=== PATIENT | male | born 1950 | race Caucasian/White ===

== ENCOUNTER 2025-03-09 06:58 | Inpatient (IN) | payer OTHER ==
[2025-03-01 15:04] LABS: BILIRUBIN,URINE NEGATIVE (Neg); CLARITY,URINE CLEAR (Clear); COLOR,URINE YELLOW (Yellow); GLUCOSE, URINE 500 mg/dl (Neg); KETONES,URINE NEGATIVE (Neg); LEUKOCYTE ESTERASE ,URINE NEGATIVE (Neg); NITRITES, URINE NEGATIVE (Neg); OCCULT BLOOD,URINE NEGATIVE (Neg); PH,URINE 5.5 (4.8-8.0); PROTEIN,URINE NEGATIVE (Neg); UROBILINOGEN,URINE 0.2 E.U/dL (0.2-1.0)
[2025-03-01 15:05] LABS: UA COLLECTION TYPE CLN CATCH MIDSTREAM
[2025-03-01 15:06] LABS: BASOPHILS % (AUTO) 0.3 % (0-1); EOSINOPHILS # (AUTO) 0.3 X10'3 (0-0.9); EOSINOPHILS % (AUTO) 3.7 % (0-6); LYMPHOCYTES # (AUTO) 2.7 X10'3 (1.1-4.8); LYMPHOCYTES % (AUTO) 30.7 % (21-51); MEAN CORPUSCULAR HEMOGLOBIN 29.8 PG (27.0-31.0); MEAN CORPUSCULAR HGB CONC 32.3 g/dL (33.0-36.5); MEAN CORPUSCULAR VOLUME 92.4 FL (78-98); MEAN PLATELET VOLUME 9.6 FL (7.4-10.4); MONOCYTES # (AUTO) 0.7 X10'3 (0-0.9); MONOCYTES % (AUTO) 7.3 % (2-12); NEUTROPHILS # (AUTO) 5.2 X10'3 (1.8-7.7); PRE OP HEMOGLOBIN 15.2 g/dL (14.0-17.9); PRE OP PLATELET COUNT 138 X10'3 (140-440); PRE OP WHITE BLOOD COUNT 8.9 10'3 (4.8-10.8); RED BLOOD COUNT 5.09 X10'6 (4.70-6.10); RED CELL DISTRIBUTION WIDTH 15.9 % (11.5-14.5)
[2025-03-01 15:25] LABS: ALBUMIN/GLOBULIN RATIO 1.2 (1.1-1.5); ALKALINE PHOSPHATASE 135 IU/L (46-116); BLOOD UREA NITROGEN 60 MG/DL (7-18); BUN/CREATININE RATIO 28.3 (10.0-20.0); CALCIUM 8.9 MG/DL (8.5-10.1); CHLORIDE 109 MMOL/L (99-107); CREATININE 2.12 MG/DL (0.60-1.10); PRE OP ALT 56 U/L (30-65); PRE OP ANION GAP 14 (8-16); PRE OP AST 34 U/L (10-37); PRE OP BILIRUB, TOTAL 1.2 MG/DL (0.0-1.0); PRE OP GLUCOSE 98 MG/DL (70-104); PRE OP POTASSIUM 4.4 MMOL/L (3.4-5.1); PRE OP SODIUM 142 MMOL/L (135-145); TOTAL CARBON DIOXIDE 18.6 MMOL/L (24-32); TOTAL PROTEIN 7.3 G/DL (6.4-8.2); eGFR 30 ML/MIN
[2025-03-01 15:29] LABS: PRE OP INR 1.3 INR
[2025-03-01 15:46] LABS: HEMOGLOBIN A1C 5.5 % (4.5-6.2)
[2025-03-09] VITALS (15 sets, daily range): BP systolic 100–142; BP diastolic 50–71; PULSE 51–77; RESP 9–18; TEMP 96.4–98.1; O2SAT 92–100
[~2025-03-09] VITALS: Ht 172.7 cm; Wt 78.2 kg
[2025-03-09] MEDS: ceFAZolin 2gm in dextrose, iso 50 ML IV ONE (05:30)
[~2025-03-09 06:58] MED LIST: ASCO500C17 PO; DOCUMENT DATE & TIME OF BETA-BLOCKER PO ONE; EMPA10TA PO; FERR-116 PO; FINA5TAB11 PO; FLUT16SP35 BOTHNARES; FURO-149 PO; GABA300C PO; HYDR-3972 PO; LORA10TA7 PO; MAGN200T5 PO; METO-384 PO; MULT-1249 PO; NITR0.4T51 SL; PANT-47 PO; RIVA20TA PO; SACU1TAB7 PO; SPIR25TA5 PO; TIOT4MIS8 PO; ondansetron/PF 4mg/2ml inj IV PRN; protamine sulfate 10mg/ml inj. ONE
[2025-03-09] MEDS: famotidine 20mg tablet PO ONE (08:15)
[2025-03-09] MEDS: VANCOMYCIN/H2O 1.5g/300mL PB 300 ML IV ONE (08:16)
[2025-03-09] MEDS: ringers solution, lacted 1,000 ML IV SCH (08:21)
[2025-03-09] MEDS ORDERED: midazolam 1 mg/ML 2ml injection ONE (09:06)
[2025-03-09] MEDS ORDERED: fentaNYL/PF 50MCG/1 ML 2ML syringe ONE (09:06)
[2025-03-09] MEDS ORDERED: iohexol 350MG/ML 100ml bottle IV ONE (09:15)
[2025-03-09] MEDS ORDERED: heparin 1,000 UNITS/NS 500ml 500 ML ONE (09:15)
[2025-03-09] MEDS ORDERED: desflurane 240ml liquid inh. IH ONE (09:24)
[2025-03-09] MEDS ORDERED: heparin 1,000unit/ml 10ml vial 10 ML ONE (09:27)
[2025-03-09] MEDS ORDERED: ondansetron/PF 4mg/2ml inj ONE (09:39)
[2025-03-09] MEDS ORDERED: dexamethasone sod phosphate 4mg/ml inj. ONE (09:39)
[2025-03-09] MEDS ORDERED: neostigmine methylsulfate 1 MG/ML 10ml vial ONE (09:39)
[2025-03-09] MEDS ORDERED: rocuronium 10mg/ml inj IV ONE (09:39)
[2025-03-09] MEDS ORDERED: glycopyrrolate 0.2mg/ml inj ONE (09:39)
[2025-03-09] MEDS ORDERED: HYDROcodone/acetaminophen 10/325mg tab PO PRN (09:45)
[2025-03-09] MEDS ORDERED: diphenhydrAMINE 25mg capsule PO PRN (10:05)
[2025-03-09] MEDS ORDERED: potassium CL 10mEq/100ml bag 100 ML IV PRN (10:05)
[2025-03-09] MEDS ORDERED: potassium Cl 40MEQ/1/2NS 520ml 520 ML IV PRN (10:05)
[2025-03-09] MEDS ORDERED: proCHLORperazine 10 MG/2 ml inj IV PRN (10:05)
[2025-03-09] MEDS ORDERED: labetalol 20mg/4ml (5mg/ml) syringe IV PRN (10:05)
[2025-03-09] MEDS ORDERED: magnesium sulf-water 2g/50mL 50 ML IV PRN (10:05)
[2025-03-09] MEDS ORDERED: ALPRAZolam 0.25mg tablet PO PRN (10:05)
[2025-03-09] MEDS ORDERED: hydrALAZINE 20mg/ml inj. IV PRN (10:05)
[2025-03-09] MEDS ORDERED: magnesium sulf-water 4G/100mL 100 ML IV PRN (10:05)
[2025-03-09] MEDS ORDERED: HYDROcodone/acetaminophen 5mg/325mg tablet PO PRN (10:05)
[2025-03-09] MEDS ORDERED: pantoprazole 40mg Tablet.DR PO PRN (10:05)
[2025-03-09] MEDS ORDERED: potassium Cl 20 mEq SR tablet PO PRN (10:05)
[2025-03-09] MEDS ORDERED: acetaminophen 325mg tablet PO PRN (10:05)
[2025-03-09] MEDS ORDERED: ondansetron/PF 4mg/2ml inj IV PRN (10:05)
[2025-03-09] MEDS ORDERED: docusate sod 100mg capsule PO PRN (10:05)
[2025-03-09] MEDS ORDERED: potassium Cl 20mEq/100mL bag 100 ML IV PRN (10:05)
[2025-03-09] MEDS ORDERED: potassium Cl 40MEQ/270ML bag 250 ML IV PRN (10:05)
[2025-03-09] MEDS: normal saline 1000ml 1,000 ML IV SCH (15:48)
[2025-03-09] MEDS: ceFAZolin 1GM/D5W- ADD-VANTAGE 50 ML IV SCH (15:49)
[2025-03-09] MEDS: sacubitril/valsartan 49mg-51mg tablet PO SCH (20:00)
[2025-03-09] MEDS: pantoprazole 40mg Tablet.DR PO SCH (21:44)
[2025-03-09] MEDS: vancomycin inj 1,000 MG in normal saline 250ml IV soln 250 ML IV SCH (21:54)
[2025-03-10 02:00] VITALS: BP 125/53; PULSE 74; RESP 14; TEMP 97.6; O2SAT 95
[2025-03-10 03:48] VITALS: RESP 16; O2SAT 98
[2025-03-10 06:00] VITALS: BP 120/67; PULSE 77; RESP 16; TEMP 97.5; O2SAT 96
[2025-03-10 06:50] LABS: BASOPHILS % (AUTO) 0.1 % (0-1); EOSINOPHILS % (AUTO) 0 % (0-6); HEMATOCRIT 38.1 % (42.0-52.0); HEMOGLOBIN 12.8 g/dl (14.0-17.9); LYMPHOCYTES # (AUTO) 1.7 X10'3 (1.1-4.8); LYMPHOCYTES % (AUTO) 17.3 % (21-51); MEAN CORPUSCULAR HEMOGLOBIN 30.3 PG (27.0-31.0); MEAN CORPUSCULAR HGB CONC 33.6 g/dL (33.0-36.5); MEAN CORPUSCULAR VOLUME 90.4 FL (78-98); MEAN PLATELET VOLUME 9.2 FL (7.4-10.4); MONOCYTES # (AUTO) 0.7 X10'3 (0-0.9); MONOCYTES % (AUTO) 7.3 % (2-12); NEUTROPHILS # (AUTO) 7.5 X10'3 (1.8-7.7); NEUTROPHILS % (AUTO) 75.3 % (42-75); PLATELET COUNT 111 X10'3 (140-440); RED BLOOD COUNT 4.22 X10'6 (4.70-6.10); RED CELL DISTRIBUTION WIDTH 14.9 % (11.5-14.5); WHITE BLOOD COUNT 9.9 X10'3 (4.5-11.0)
[2025-03-10 06:59] LABS: INR 1.1 INR; PROTHROMBIN TIME 10.8 SECONDS (9.0-12.0)
[2025-03-10 07:00] VITALS: RESP 15; O2SAT 97
[2025-03-10 07:10] LABS: ALANINE AMINOTRANSFERASE 31 U/L (12-78); ALBUMIN 2.9 G/DL (3.4-5.0); ALBUMIN/GLOBULIN RATIO 0.9 (1.1-1.5); ALKALINE PHOSPHATASE 100 IU/L (46-116); ANION GAP 7 (8-16); ASPARTATE AMINO TRANSFERASE 23 U/L (10-37); BILIRUBIN,TOTAL 0.7 MG/DL (0.1-1.0); BLOOD UREA NITROGEN 48 MG/DL (7-18); BUN/CREATININE RATIO 25.4 (10.0-20.0); CALCIUM 8.6 MG/DL (8.5-10.1); CHLORIDE 113 MMOL/L (99-107); CREATININE 1.89 MG/DL (0.60-1.10); GLUCOSE 116 MG/DL (70-104); MAGNESIUM 1.8 MG/DL (1.5-2.4); POTASSIUM 4.9 MMOL/L (3.5-5.1); PRO BRAIN NATRIURETIC PEPTIDE 1045 PG/ML (0-450); SODIUM 141 MMOL/L (135-145); TOTAL CARBON DIOXIDE 20.8 MMOL/L (24-32); eCRCL 32 ML/MIN; eGFR 35 ML/MIN
[2025-03-10] MEDS: OLODATEROL HCL PO SCH (08:00)
[2025-03-10] MEDS: TIOTROPIUM BR PO SCH (08:00)
[2025-03-10] MEDS: finasteride 5mg tablet PO SCH (08:44)
[2025-03-10] MEDS: spironolactone 25 MG tablet PO SCH (08:44)
[2025-03-10] MEDS: metoprolol succinate 25mg (24-HOUR) SR. Tablet PO SCH (08:44)
[2025-03-10] MEDS: gabapentin 300mg capsule PO SCH (08:45)
[2025-03-10] MEDS: ascorbic acid 500mg tablet PO SCH (08:45)
[2025-03-10] MEDS: ferrous sulfate 325mg tablet PO SCH (08:45)
[2025-03-10] MEDS: loratadine 10mg tablet PO SCH (08:45)
[2025-03-10] MEDS: furosemide 40mg tablet PO SCH (08:45)
[2025-03-10] MEDS: rivaroxaban 20mg tablet PO SCH (08:45)
[2025-03-10 11:00] VITALS: BP 116/84; PULSE 60; RESP 15; TEMP 97.5; O2SAT 96
[2025-03-10] MEDS ORDERED: RIVA15TA PO (11:08)
== END 2025-03-10 11:55 | disposition home or self-care (01) | DRG 274 ==
LOC: PAS IN 06:58 → PCU 3S 16:39
PROVIDERS: ADMIT Student in an Organized Health Care Education/Training Program; ATTEND Student in an Organized Health Care Education/Training Program
PROC: B24BZZ4 Ultrasonography of Heart with Aorta, Transesophageal (ICD-10-PCS; 2025-03-09)
PROC: 02L73DK Occlusion of Left Atrial Appendage with Intraluminal Device, Percutaneous Approach (ICD-10-PCS; principal; 2025-03-09 09:24)
DX: I48.91 Unspecified atrial fibrillation (principal); Z00.6 Encounter for examination for normal comparison and control in clinical research program; Z79.01 Long term (current) use of anticoagulants
CPT/HCPCS: 33340; 36415; 71045; 71046; 76937; 80053; 81003; 82948; 83036; 83735; 83880; 85025; 85347; 85610; 85730; 86885; 86900; 86901; 86920; 87081; 93005; 93308; 93312; 93325; A4615; A4618; A6258; A6449; C1760; C1889; C1893; C1894; G0378; J0690; J1100; J1644; J2003; J2250; J2405; J2704; J2710; J2720; J3010; J3370; J3372; J3490; J7030; J7050; J7120; Q9967

== ENCOUNTER 2025-05-01 11:03 | Day surgery (SDC) | payer OTHER ==
[~2025-05-01] VITALS: Ht 172.7 cm; Wt 77.0 kg
[2025-05-01] VITALS (13 sets, daily range): BP systolic 150–173; BP diastolic 70–90; PULSE 54–72; RESP 12–14; TEMP 98.2; O2SAT 94–100
[~2025-05-01 11:03] MED LIST changes: -DOCUMENT DATE & TIME OF BETA-BLOCKER PO ONE; +RIVA15TA PO; -RIVA20TA PO; -ondansetron/PF 4mg/2ml inj IV PRN; -protamine sulfate 10mg/ml inj. ONE
[2025-05-01 12:03] LABS: BASOPHILS % (AUTO) 0.9 % (0-1); EOSINOPHILS # (AUTO) 0.2 X10'3 (0-0.9); EOSINOPHILS % (AUTO) 3.9 % (0-6); HEMATOCRIT 29.3 % (42.0-52.0); HEMOGLOBIN 9.3 g/dl (14.0-17.9); LYMPHOCYTES # (AUTO) 1.1 X10'3 (1.1-4.8); LYMPHOCYTES % (AUTO) 22.7 % (21-51); MEAN CORPUSCULAR HEMOGLOBIN 27.1 PG (27.0-31.0); MEAN CORPUSCULAR HGB CONC 31.8 g/dL (33.0-36.5); MEAN CORPUSCULAR VOLUME 85.4 FL (78-98); MEAN PLATELET VOLUME 8.7 FL (7.4-10.4); MONOCYTES # (AUTO) 0.5 X10'3 (0-0.9); MONOCYTES % (AUTO) 9.6 % (2-12); NEUTROPHILS # (AUTO) 3.1 X10'3 (1.8-7.7); NEUTROPHILS % (AUTO) 62.9 % (42-75); PLATELET COUNT 127 X10'3 (140-440); RED BLOOD COUNT 3.43 X10'6 (4.70-6.10); RED CELL DISTRIBUTION WIDTH 15.1 % (11.5-14.5); WHITE BLOOD COUNT 4.9 X10'3 (4.5-11.0)
[2025-05-01] MEDS ORDERED: RIVA15TA PO (12:06)
[2025-05-01 12:21] LABS: APTT 30 SECONDS (22-32); INR 1.3 INR; PROTHROMBIN TIME 12.8 SECONDS (9.0-12.0)
[2025-05-01 12:24] LABS: ALBUMIN 2.9 G/DL (3.4-5.0); ANION GAP 10 (8-16); BLOOD UREA NITROGEN 18 MG/DL (7-18); CALCIUM 8.2 MG/DL (8.5-10.1); CHLORIDE 107 MMOL/L (99-107); CREATININE 1.64 MG/DL (0.60-1.10); GLUCOSE 96 MG/DL (70-104); POTASSIUM 3.6 MMOL/L (3.5-5.1); SODIUM 143 MMOL/L (135-145); TOTAL CARBON DIOXIDE 25.9 MMOL/L (24-32); eCRCL 36 ML/MIN; eGFR 41 ML/MIN
[2025-05-01] MEDS: MIDAZolam 1mg/ml 10ml vial IV ONE (13:56)
[2025-05-01] MEDS: fentaNYL/PF 50MCG/1 ML 2ML syringe IV ONE (13:56)
[2025-05-01] MEDS ORDERED: ASPI81TA52 PO (14:14)
[2025-05-01] MEDS ORDERED: CLOP75TA34 PO (14:14)
--- NOTE | 2025-05-02 18:01 | CARDIOLOGY REPORT ---
APPROVED REPORT EXAM: Focused, limited transesophageal echocardiogram with color flow Doppler. Patient Location: OUT-PATIENT Blood Pressure: 163/78 mmHg Heart Rate: 63 bpm Rhythm: SINUS Indications POST WATCHMAN FLX JOSEFINA CLOSURE DEVICE IMPLANTATION FOLLOW UP EVALUATE DEVICE FOR THROMBUS, POSITION, AND SEAL 27 mm WATCHMAN FLX JOSEFINA CLOSURE DEVICE PACEMAKER MADELYN PROBE PASSED BY: Leonel Ruffin MD Packer: Jake Ruffin MD Previous echo: 03/09/25 [facility] (EF 55-60%, small LtoR shunt s/p transseptal puncture, no residual flow a round device, trace PE post-implant, anteior fat pad is present) LEFT VENTRICLE Normal LV size and wall thickness. Overall systolic function is low normal. LVEF is 55%. RIGHT VENTRICLE RV appears at least mildly dilated with normal systolic function. Pacemaker wire in right heart. ATRIA LA is severely dilated. Mobile interatrial septum with no L to R shunt detected s/p transseptal punct ure. Left upper pulmonary vein identified. Successfully occluded left atrial appendage with well visu alized Watchman device well positioned without thrombus. No residual flow detected around device in a ll views. PERICARDIUM Normal pericardium. No effusion. Anterior epicardial fat pad is present. CONCLUSION Normal LV size and wall thickness. Overall systolic function is low normal. LVEF is 55%. RV appears a t least mildly dilated with normal systolic function. Pacemaker wire in right heart. LA is severely d ilated. Mobile interatrial septum with no L to R shunt detected s/p transseptal puncture. Left upper pulmonary vein identified. Successfully occluded left atrial appendage with well visualized Watchman device well positioned without thrombus. No residual flow detected around device in all views. Normal pericardium. No effusion. Anterior epicardial fat pad is present. Conclusion Normal LV size and wall thickness. Overall systolic function is low normal. LVEF is 55%. RV appears at least mildly dilated with normal systolic function. Pacemaker wire in right heart. LA is severely dilated. Mobile interatrial septum with no L to R shunt detected s/p transseptal punc ture. Left upper pulmonary vein identified. Successfully occluded left atrial appendage with well v isualized Watchman device well positioned without thrombus. No residual flow detected around device in all views. Normal pericardium. No effusion. Anterior epicardial fat pad is present.
== END 2025-05-01 15:15 | disposition home or self-care (01) ==
LOC: SSTAY O 11:03 → EDSTATUS 14:30 → SSTAY O 15:15
PROVIDERS: ATTEND Student in an Organized Health Care Education/Training Program
DX: I48.91 Unspecified atrial fibrillation (principal); I11.0 Hypertensive heart disease with heart failure; I50.9 Heart failure, unspecified; J44.9 Chronic obstructive pulmonary disease, unspecified; Z85.6 Personal history of leukemia
CPT/HCPCS: 36415; 80048; 85025; 85610; 85730; 93312; 93325; J2250; J3010; J7030